=== PATIENT | female | born 1970 | race Caucasian/White ===

== ENCOUNTER 2019-01-05 23:10 | Emergency (ER) | payer MEDICAID, OTHER ==
[~2019-01-05] VITALS: Ht 175.3 cm; Wt 52.8 kg
[~2019-01-05 23:10] MED LIST: CYCL10TA7 PO
[2019-01-05 23:16] VITALS: Ht 175.3 cm; Wt 52.8 kg
[2019-01-05] MEDS ORDERED: KETOROLAC 30 MG INJ IM STA (23:47)
[2019-01-06 02:04] VITALS: BP 127/77; PULSE 80; RESP 18
== END 2019-01-06 02:05 | disposition home or self-care (01) ==
LOC: FTE 23:10
DX: M54.12 Radiculopathy, cervical region (principal); F17.210 Nicotine dependence, cigarettes, uncomplicated
CPT/HCPCS: 81025; 93971; J1885; 96372